=== PATIENT | male | born 1990 | race Caucasian/White ===

== ENCOUNTER 2020-06-23 11:07 | Emergency (ER) | payer OTHER, SELFPAY ==
[2020-06-23 11:13] VITALS: BP 124/73; PULSE 66; RESP 14; TEMP 37.3; O2SAT 98; BMI 22.3
--- NOTE | 2020-06-23 11:33 | ED_ITS ---
HPI - General Adult General Chief complaint: Upper Respiratory Symptoms Stated complaint: congestion in chest,sore throat,wants covid test Time Seen by Provider: 06/23/20 11:15 Source: patient Mode of arrival: Ambulatory Limitations: no limitations History of Present Illness HPI narrative: 29-year-old male comes emergency department with some slight sore throat, mild cough and he describes very mild congestion in his chest patient denies any fevers denies any shortness breath. Patient denies chest pain at this time. No nausea, no vomiting, no diarrhea, no urinary symptoms. Denies any swelling in his extremities or other symptoms. Patient states he has had multiple contacts at varying intervals several which have tested positive after interacting with them. He states that at times he has had prolonged interactions sometimes with past sometimes without. Patient denies any other medical issues, denies any prior surgeries. No allergies medications other than penicillin. Denies any current prescription medications. Patient states that he tried to go to the respiratory clinic but because he has they do not take his insurance. Related Data Allergies Allergy/AdvReac Type Severity Reaction Status Date / Time Penicillins [PENICILLINS] Allergy Unknown Verified 06/23/20 11:18 Review of Systems Review of Systems ROS Unobtainable: All systems reviewed & are unremarkable except as noted in HPI and below Patient History Social History Smoking Status: Unknown if ever smoked Smoking Status: Unknown if ever smoked alcohol intake frequency: a few times a week Substance Use Type: does not use Exam Narrative Exam Narrative: GENERAL: Alert and oriented x three, well-nourished, well- appearing male in no acute distress. HEENT: Head normocephalic, atraumatic, EOMI, pupils reactive, face symmetric, moist mucous membranes NECK: Supple, full range of motion CARDIOVASCULAR: Regular rate and rhythm without murmurs, rubs or gallops. RESPIRATORY: Breath sounds equal bilaterally, no wheezes rales or rhonchi. No tachycardia, no tachypnea. No accessory muscle use. ABDOMEN: Soft, nontender. Normoactive bowel sounds all 4 quadrants. No gu arding or rebound, rigidity, no mass : No CVA tenderness EXTREMITIES: Normal range of motion, no clubbing or edema. Neurovascularly intact NEUROLOGICAL: Cranial nerves II through XII grossly intact. Moving all extremities SKIN: Warm, dry, no petechiae, no rashes or lesions. Initial Vital Signs Initial Vital Signs: Vital Signs Temperature 99.2 F 06/23/20 11:13 Pulse Rate 66 06/23/20 11:13 Respiratory Rate 14 06/23/20 11:13 Blood Pressure 124/73 06/23/20 11:13 Pulse Oximetry 98 06/23/20 11:13 Course Orders Ordered: ED Orders 06/23/20 11:21 COVID19 Stat Reevaluation(s) Reevaluation #1: Discussed with patient his testing today. He was COVID positive. We discussed getting a chest x-ray he defers. His vitals are all stable inappropriate here so I do not feel that it is absolutely need to have a chest x-ray but I did discuss that if he is having any symptoms or mildly under the weather that it would be appropriate to by a pulse oximeter and check his oxygen level at home and if he is running below 94 would be appropriate to return to the ER or if he has is having worsening symptoms in general. Time: 12:30 Vital Signs Vital signs: Vital Signs - 8 hr 06/23/20 11:13 06/23/20 12:41 Temperature 99.2 F Pulse Rate 66 75 Respiratory Rate 14 14 Blood Pressure 124/73 131/85 Pulse Oximetry 98 99 Medical Decision Making Lab Data Labs: Lab Results 06/23/20 Range/Units 11:21 COVID-19 PCR Positive H (Negative) MDM Narrative Medical decision making narrative: Patient arrives with complaint of exposure and concern for COVID with mild symptoms. Patient vitals are stable here. We discussed chest x-ray but he would like to defer at this time. Patient is covid positive but very mild symptoms with normal vitals. Discussed plan to get pulse oximeter to monitor at home and given return precautions. Discharge Plan Departure Patient Disposition: Home Clinical Impression: COVID-19 virus infection Instructions: DI for COVID-19 (Suspected or Confirmed ) Activity Restrictions/Additional Instructions: *You have been diagnosed with coronavirus *What to do: * per recommendations from the CDC and the [facility] Department of Health * stay home except to get medical care. Restrict activities outside your home, except for getting medical care. Do not go to work, school, or public areas. Avoid using public transportation, ride sharing, or taxis. * separate yourself from other people in your home. * call ahead before visiting your doctor * Wear a face mask * Cover your coughs and sneezes * Clean your hands often * Avoid sharing household items * Clean all high-touch services every day * Monitor your symptoms and seek prompt medical attention if your illness is worsening, particularly with difficulty in breathing. Discussed continuing home isolation * for individuals with symptoms who are confirmed or suspected cases of COVID-19 and are directed to care for themselves at home, discontinue home isolation under the following conditions: 1. At least 72 hours have passed since recovery, defined as resolution of fever without the use of fever reducing medications, and improvement in respiratory symptoms (cough, shortness of breath) AND, 2. At least 7 days have passed since symptoms 1st appeared Individuals with laboratory confirmed COVID-19 who have not had any symptoms may discontinue home isolation when at least 7 days have passed since the date of their 1st COVID-19 diagnostic test and have had no subsequent illness
[2020-06-23 11:39] LABS: COVID19 -Nasal RAPID POSITIVE (Negative)
[2020-06-23 12:41] VITALS: BP 131/85; PULSE 75; RESP 14; O2SAT 99
== END 2020-06-23 12:43 | disposition home or self-care (01) ==
PROVIDERS: Emergency Provider Emergency Medicine
DX: U07.1 COVID-19 (principal); R05 Cough; J02.9 Acute pharyngitis, unspecified
CPT/HCPCS: 87635; 99281; 99282

== ENCOUNTER → 2025-04-29 07:47 | Outpatient (CLI) | payer OTHER, SELFPAY | LOC: PHYS 07:48 | PROVIDERS: Referring Provider Student in an Organized Health Care Education/Training Program; Visit Provider Student in an Organized Health Care Education/Training Program | DX: G56.10 Other lesions of median nerve, unspecified upper limb (principal) | CPT/HCPCS: 95886; 95910 ==